=== PATIENT | female | born 1950 | race Caucasian/White ===

== ENCOUNTER 2016-11-29 10:44 | Emergency (ER) | payer OTHER ==
[~2016-11-29] VITALS: Ht 167.6 cm; Wt 101.7 kg
[~2016-11-29 10:44] MED LIST: ACET325T14 PO; AMLO10TA2 PO; ATEN25TA PO; ATEN50TA41 PO; CHOL100011 PO; CHOL2000 PO; DIAZ5TAB4 PO; ENOX100S5 SQ; ENOX40SY4 SQ; FLUO20CA8 PO; LISI5TAB7 PO; LORA-446 PO; MAGN400O4 PO; OMEG-120 PO; OMEP-110 PO; OXYC1TAB7 PO; OXYC5TAB3 PO; POLY17PO5 PO; SENN-31 PO; SIMV20TA3 PO; WARF10TA PO; WARF5TAB7 PO; protandim PO
[2016-11-29 10:46] VITALS: BP 131/77
== END 2016-11-29 12:58 | disposition home or self-care (01) ==
LOC: ED 12:43
DX: S62.347A Nondisplaced fracture of base of fifth metacarpal bone, left hand, initial encounter for closed fracture (principal); E78.00 Pure hypercholesterolemia, unspecified; I10 Essential (primary) hypertension; K21.9 Gastro-esophageal reflux disease without esophagitis; Z86.711 Personal history of pulmonary embolism; Z86.718 Personal history of other venous thrombosis and embolism; W23.0XXA Caught, crushed, jammed, or pinched between moving objects, initial encounter; Y93.89 Activity, other specified; Y92.89 Other specified places as the place of occurrence of the external cause; Y99.9 Unspecified external cause status
CPT/HCPCS: 29125; 36415; 85610; 99285

== ENCOUNTER 2018-07-22 14:23 | Emergency (ER) | payer MEDICARE ==
[~2018-07-22] VITALS: Ht 167.6 cm; Wt 96.6 kg
[~2018-07-22 14:23] MED LIST changes: -AMLO10TA2 PO; +AMLO10TA8 PO; -MAGN400O4 PO; +MAGN400O7 PO; +WARF-36 PO; -WARF5TAB7 PO
[2018-07-22 15:09] LABS: MEAN CORPUSCULAR HEMOGLOBIN 29.5 pg (27.0-34.8); MEAN CORPUSCULAR HGB CONC 32.6 g/dL (32.4-35.8); MEAN CORPUSCULAR VOLUME 90.7 fL (80-100); MEAN PLATELET VOLUME 7.7 fL (7.4-10.4); PLATELET COUNT 654 x10^3/uL (130-400); RED BLOOD COUNT 4.34 x10^6/uL (3.82-5.3); RED CELL DISTRIBUTION WIDTH 14.7 % (9.6-15.2)
[2018-07-22 15:14] LABS: ALANINE AMINOTRANSFERASE 12 U/L (12-78); ALBUMIN 3.3 g/dL (3.4-5.0); ANION GAP 9 mmol/L (5-15); CHLORIDE 108 mmol/L (98-107); CREATININE 1.04 mg/dL (0.55-1.02)
[2018-07-22 15:16] LABS: ALKALINE PHOSPHATASE 133 U/L (45-117); BILIRUBIN,TOTAL 0.4 mg/dL (0.2-1.0); TOTAL PROTEIN 7.6 g/dL (6.4-8.2)
[2018-07-22 15:25] LABS: BASOPHILS # (AUTO) 0.05 x10^3/uL (0-0.1); BASOPHILS % (AUTO) 0 % (0-1); EOSINOPHILS # (AUTO) 0.09 x10^3/uL (0-0.4); EOSINOPHILS % (AUTO) 1 % (1-7); LYMPHOCYTES # (AUTO) 3.17 x10^3/uL (1-3.4); LYMPHOCYTES % (AUTO) 18 % (22-44); MD SCAN; MONOCYTES % (AUTO) 6 % (2-9); NEUTROPHILS # (AUTO) 13.75 x10^3/uL (1.8-6.8); NEUTROPHILS % (AUTO) 76 % (42-75)
--- NOTE | 2018-07-22 15:26 | NUR ---
Pt c/o generalized weakness and being tired, had knee surgery 2 weeks ago, denies any complications. Concerned she has a PE due to multiple PE and DVT's in the past. Pt on coumadin, told by coumadin clinic to come to ER for ct of chest. Pt on cont cardiac and pulse ox monitoring, room air sats remain above 94%
[2018-07-22] MEDS ORDERED: SODIUM CHLORIDE FLUSH 10ML SYR IVF ONE (16:00)
[2018-07-22 16:02] LABS: TROPONIN I < 0.015 ng/mL (0.000-0.045)
[2018-07-22 16:28] LABS: INTERNATIONAL NORMALIZED RATIO 2.42 (0.93-1.1); PROTHROMBIN TIME 24.6 Seconds (9.6-11.5)
--- NOTE | 2018-07-22 16:47 | NUR ---
Pt ambulated to restroom with steady gait, given warm blankets per request, awaiting CT results
[2018-07-22] MEDS ORDERED: OMNIPAQUE 350 MG/ML, 100ML BOTTLE ONE (16:48)
--- NOTE | 2018-07-22 17:29 | NUR ---
Pt updated on continued wait time for CT results
[2018-07-22 18:36] VITALS: BP 135/69
--- NOTE | 2018-07-22 18:36 | NUR ---
in for recheck, pt agrees to poc (DC) Denies any questions/concerns.
== END 2018-07-22 19:21 | disposition home or self-care (01) ==
LOC: ED 15:46
DX: D72.829 Elevated white blood cell count, unspecified (principal); I25.2 Old myocardial infarction; E78.00 Pure hypercholesterolemia, unspecified; K21.9 Gastro-esophageal reflux disease without esophagitis; I10 Essential (primary) hypertension; Z86.718 Personal history of other venous thrombosis and embolism
CPT/HCPCS: 36415; 71275; 80053; 84484; 85025; 85610; 85730; 93005; 99284; Q9967

== ENCOUNTER 2020-05-21 16:21 | Emergency (ER) | payer MEDICARE ==
[~2020-05-21] VITALS: Ht 167.6 cm; Wt 88.0 kg
[~2020-05-21 16:21] MED LIST changes: +AMLO-211 PO; -AMLO10TA8 PO; +FLUO20CA23 PO; -FLUO20CA8 PO; +SIMV20TA19 PO; -SIMV20TA3 PO
[2020-05-21 16:53] LABS: MICROSCOPIC NOT IND
[2020-05-21 17:20] LABS: BASOPHILS % (AUTO) 1 % (0-1); EOSINOPHILS % (AUTO) 1 % (1-7); LYMPHOCYTES % (AUTO) 29 % (22-44); MEAN CORPUSCULAR HEMOGLOBIN 31.1 pg (27.0-34.8); MEAN PLATELET VOLUME 8.5 fL (7.4-10.4); MONOCYTES % (AUTO) 10 % (2-9); NEUTROPHILS % (AUTO) 59 % (42-75); PLATELET COUNT 336 x10^3/uL (130-400); RED BLOOD COUNT 4.42 x10^6/uL (3.82-5.3); RED CELL DISTRIBUTION WIDTH 13.7 % (9.6-15.2)
[2020-05-21 17:21] LABS: MD NO
[2020-05-21 17:30] LABS: ALBUMIN 3.8 g/dL (3.4-5.0); ANION GAP 5 mmol/L (5-15); CHLORIDE 110 mmol/L (98-107)
[2020-05-21 17:34] LABS: ALANINE AMINOTRANSFERASE 29 U/L (12-78); ALKALINE PHOSPHATASE 176 U/L (45-117); BILIRUBIN,TOTAL 0.7 mg/dL (0.2-1.0); CREATININE 0.94 mg/dL (0.55-1.02); TOTAL PROTEIN 7.4 g/dL (6.4-8.2)
--- NOTE | 2020-05-21 17:48 | NUR ---
TO [facility] FROM [facility]OB[facility]
--- NOTE | 2020-05-21 18:25 | NUR ---
RN at bedside. Provider at bedside.
[2020-05-21] MEDS ORDERED: MORPHINE SULFATE 4 MG/ML, 1ML ONE (18:29)
[2020-05-21] MEDS ORDERED: ONDANSETRON 2MG/ML, 2ML ONE (18:29)
[2020-05-21] MEDS ORDERED: MORPHINE SULFATE 4 MG/ML, 1ML IVPush PRN (18:30)
[2020-05-21] MEDS ORDERED: SODIUM CHLORIDE FLUSH 10ML SYR IVF ONE (18:30)
[2020-05-21] MEDS ORDERED: ONDANSETRON 2MG/ML, 2ML IVPush ONE (18:30)
[2020-05-21 18:57] LABS: INTERNATIONAL NORMALIZED RATIO 3.16 (0.93-1.1); PROTHROMBIN TIME 33.1 Seconds (9.6-11.5)
[2020-05-21] MEDS ORDERED: OMNIPAQUE 350 MG/ML, 100ML BOTTLE ONE (19:06)
--- NOTE | 2020-05-21 19:30 | NUR ---
Pt reporting she wants to home, wondering why she needs to stay in the hospital. This RN explaining pt.'s condition and test results and requesting for hospitalist to come speak with pt. as well.
--- NOTE | 2020-05-21 20:02 | NUR ---
Hospitalist in room updating and talking with pt. After the visit pt reports she understands better why she is staying in the hospital.
[2020-05-21 20:45] VITALS: BP 135/63
== END 2020-05-21 20:52 | disposition home or self-care (01) ==
LOC: ED 18:47
DX: R10.84 Generalized abdominal pain (principal); R11.2 Nausea with vomiting, unspecified; Z20.828 Contact with and (suspected) exposure to other viral communicable diseases; I10 Essential (primary) hypertension; I25.2 Old myocardial infarction; K21.9 Gastro-esophageal reflux disease without esophagitis; E78.00 Pure hypercholesterolemia, unspecified; Z90.89 Acquired absence of other organs; Z86.718 Personal history of other venous thrombosis and embolism
CPT/HCPCS: 71045; 74177; 80053; 81003; 83690; 85025; 85610; 85730; 87635; 96374; 96375; 99285; J2270; J2405; Q9967

== ENCOUNTER → 2020-08-14 | Outpatient (CLI) | payer MEDICARE, OTHER ==
[~2020-08-14] MED LIST changes: -OXYC5TAB3 PO; +OXYC5TAB98 PO
== END | disposition home or self-care (01) ==
LOC: CFH 09:33
PROVIDERS: ATTEND Internal Medicine Cardiovascular Disease
DX: I08.3 Combined rheumatic disorders of mitral, aortic and tricuspid valves (principal); R60.0 Localized edema
CPT/HCPCS: 93306